=== PATIENT | male | born 1940 | race Hispanic/Latino ===

== ENCOUNTER 2020-01-05 21:58 | Observation (INO) | payer MEDICARE ==
--- NOTE | 2020-01-05 22:41 | Emergency Department Report ---
ED Chest Pain HPI - General Chief Complaint: Chest Pain Stated Complaint: CHEST PAIN Time Seen by Provider: 01/05/20 22:19 Source: patient, EMS, old records reviewed Mode of arrival: Stretcher Limitations: No Limitations - History of Present Illness Initial Comments: 79-year male with a past medical history of 1 pack/day smoking, hypertension, PAD with history of aortic femoral bypass surgery (performed here 08/2015), and as per medical record from discharge summary 2016 alcohol abuse and COPD presents to the hospital with complaints of left-sided chest pain since 11 AM. There is a constant thumping pain with intermittent shooting pains radiating to the right chest. Patient denies nausea, vomiting, shortness breath, or diaphoresis. Pain was a 9 /10 but decreased to a 7/10 nitroglycerin aspirin 324 provided by EMS prior to arrival. Patient has been compliant with his baby aspirin daily, hypertensive medication and antilipid meds. He denies history of CAD, cardiac stent, or previous cardiac cath. Patient states he no longer drinks daily and has not had alcohol in over 3 years As per med record review Negative Nuclear med Stress test echo: normal EF 55-60% Severity scale (0 -10): 5 - Related Data Home Medications Medication Instructions Recorded Confirmed Last Taken atenoloL [Tenormin] 50 mg PO DAILY 08/14/15 01/05/20 09/15/15 23:55 50 mg lisinopriL [Lisinopril] 40 mg PO DAILY 08/14/15 01/05/20 09/15/15 23:55 40 mg Aspirin [Aspirin BABY CHEW TAB] 81 mg PO QDAY 01/05/20 01/05/20 01/05/20 AtorvaSTATin [Lipitor] 20 mg PO QHS 01/05/20 01/05/20 Unknown Allergies Allergy/AdvReac Type Severity Reaction Status Date / Time No Known Allergies Allergy Verified 08/14/15 07:22 Heart Score - HEART Score History: Moderately suspicious EKG: Non-specific Age: > 65 Risk factors: > 3 risk factors or hx of atherosclerotic disease Troponin: < normal limit HEART Score: 6 ED Review of Systems ROS: Stated complaint: CHEST PAIN Other details as noted in HPI Comment: All other systems reviewed and negative ED Past Medical Hx - Past Medical History Hx Hypertension: Yes Hx Asthma: Yes Hx COPD: Yes Hx HIV: No Additional medical history: PAD - Surgical History Additional Surgical History: Aortofemoral bypass graft 2016 for PAD - Social History Smoking Status: Current Every Day Smoker Substance Use Type: None - Medications Home Medications: Home Medications Medication Instructions Recorded Confirmed Last Taken Type atenoloL [Tenormin] 50 mg PO DAILY 08/14/15 01/05/20 09/15/15 23:55 History 50 mg lisinopriL [Lisinopril] 40 mg PO DAILY 08/14/15 01/05/20 09/15/15 23:55 History 40 mg Aspirin [Aspirin BABY CHEW TAB] 81 mg PO QDAY 01/05/20 01/05/20 01/05/20 History AtorvaSTATin [Lipitor] 20 mg PO QHS 01/05/20 01/05/20 Unknown History ED Physical Exam - General Limitations: No Limitations - Other Other exam information: General: No acute distress Head: Atraumatic Eyes: normal appearance ENT: Moist mucous membranes Neck: Normal appearance, no midline tenderness Chest: Clear to auscultation bilaterally CV: Regular rate and rhythm Abdomen: Soft, normal bowel sounds, nontender, nondistended, no rebound or guarding Back: Normal inspection Extremity: Normal inspection, full range of motion, no calf tenderness or leg edema Neuro: Alert O x 3, no facial asymmetry, speech clear, no gross motor sensory deficit Psych: Appropriate behavior Skin: No rash ED Course Vital Signs 01/05/20 01/05/20 01/05/20 20:30 20:45 21:00 Pulse Rate Respiratory Rate Blood Pressure 119/66 107/59 114/61 Blood Pressure [Right] O2 Sat by Pulse Oximetry 01/05/20 01/05/20 01/05/20 21:15 22:27 22:55 Pulse Rate 66 70 Respiratory 18 15 Rate Blood Pressure 120/60 120/60 Blood Pressure 118/60 [Right] O2 Sat by Pulse 98 Oximetry MICHAELLE score - Michaelle Score Age > 65: (1) Yes Aspirin use within the Past 7 Days: (1) Yes 3 or more CAD Risk Factors: (1) Yes 2 or more Angina events in past 24 hrs: (1) Yes Known CAD with more than 50% Stenosis: (0) No Elevated Cardiac Markers: (0) No ST Deviation Greater than 0.5mm: (0) No MICHAELLE Score: 4 ED Medical Decision Making - Lab Data Result diagrams: 01/05/20 22:53 01/05/20 22:53 - EKG Data -: EKG Interpreted by Me (Right bundle branch block, left anterior fascicular) EKG shows normal: sinus rhythm Rate: normal (60) - EKG Data When compared to previous EKG there are: changes noted (Compared to EKG on record from September 2015) - Radiology Data Radiology results: report reviewed CHEST 1 VIEW 01/05/2020 9:45 PM INDICATION / CLINICAL INFORMATION: Chest Pain. COMPARISON: None available. FINDINGS: SUPPORT DEVICES: None. HEART / MEDIASTINUM: No significant abnormality. LUNGS / PLEURA: No significant pulmonary or pleural abnormality. No pneumothorax. ADDITIONAL FINDINGS: No significant additional findings. IMPRESSION: 1. No acute findings. - Medical Decision Making Patient presents to the hospital left-sided chest pain. Personal history is significant PAD requiring aortofemoral bypass and continues to smoke cigarettes. Labs cardiac evaluation here was in 2015 and patient had a normal stress test at that time. 1/2 inch nitroglycerin paste placed to chest wall in the ED however, this will be discontinued if systolic pressure drops below 100 Patient has a history of alcohol abuse, labs revealed thrombocytopenia as well as hyponatremia and hypochloremia. Normal saline at 250 an hour ordered Initial EKG without acute ischemic findings but show a right bundle branch block which is new compared to previous EKG on record. Initial troponin negative and chest pain has been ongoing since 11 AM. Patient will be admitted to the hospitalist service with consultation of cardiology. [facility] consultation requested given that patient was evaluated and managed by [facility] in the past Pt received asa and ntg prior to ed arrival Critical Care Time: No Critical care attestation.: If time is entered above; I have spent that time in minutes in the direct care of this critically ill patient, excluding procedure time. ED Disposition Clinical Impression: Chest pain, S/P aortobifemoral bypass surgery, PAD (peripheral artery disease), Tobacco abuse Disposition: OP ADMIT IP TO THIS HOSP Is pt being admited?: Yes Condition: Stable Time of Disposition: 00:30 (Dr Ortiz/hosp)
--- NOTE | 2020-01-05 22:50 | XRay Report ---
CHEST 1 VIEW 01/05/2020 9:45 PM INDICATION / CLINICAL INFORMATION: Chest Pain. COMPARISON: None available. FINDINGS: SUPPORT DEVICES: None. HEART / MEDIASTINUM: No significant abnormality. LUNGS / PLEURA: No significant pulmonary or pleural abnormality. No pneumothorax. ADDITIONAL FINDINGS: No significant additional findings. IMPRESSION: 1. No acute findings. Signer Name: Jose Martins MD Signed: 01/05/2020 10:46 PM Workstation Name: [id number]
[2020-01-05] MEDS: NITROGLYCERIN 2% OINT 1 GM TP ONE (23:00)
[2020-01-05 23:39] LABS: Basophils % (Auto) 0.4 % (0.0-1.8); Eosinophils % (Auto) 0.9 % (0.0-4.3); Hemoglobin 13.5 gm/dl (11.8-15.2); Lymphocytes # (Auto) 1.5 K/mm3 (1.2-5.4); Lymphocytes % (Auto) 27.4 % (13.4-35.0); Mean Corpuscular HGB Conc 36 % (32-34); Mean Corpuscular Volume 93 fl (84-94); Monocytes # (Auto) 0.4 K/mm3 (0.0-0.8); Monocytes % (Auto) 7.8 % (0.0-7.3); Red Blood Count 4.11 M/mm3 (3.65-5.03); Red Cell Distribution Width 14.8 % (13.2-15.2)
[2020-01-05 23:46] LABS: INR 1.31 (0.87-1.13)
[2020-01-05 23:47] LABS: Partial Thromboplastin Time 29.2 Sec. (24.2-36.6)
[2020-01-05 23:50] LABS: Blood Urea Nitrogen 14 mg/dL (9-20); Calcium 10.1 mg/dL (8.4-10.2); Hemolysis Index 7
[2020-01-05 23:52] LABS: Platelet Count 87 K/mm3 (140-440)
[2020-01-05 23:54] LABS: BUN/Creatinine Ratio 23
[2020-01-06] MEDS ORDERED: SODIUM CHLORIDE 0.9% 1000 ML 1,000 ML IV ONE (00:22)
[2020-01-06] MEDS: NITROGLYCERIN 2% OINT 1 GM TP ONE (00:33)
[2020-01-06] MEDS ORDERED: MORPHINE 4 MG/1 ML INJ IV ONE (01:52)
[2020-01-06] MEDS ORDERED: ONDANSETRON 4 MG/2 ML INJ IV ONE (01:55)
[2020-01-06] MEDS ORDERED: MORPHINE 4 MG/1 ML INJ ONE (02:13)
[2020-01-06] MEDS ORDERED: NITROGLYCERIN 0.4 MG TAB SUBL SL PRN (02:17)
[2020-01-06] MEDS ORDERED: ONDANSETRON 4 MG/2 ML INJ IV PRN (02:17)
[2020-01-06] MEDS ORDERED: ACETAMINOPHEN 325 MG TAB PO PRN ×2 (02:17)
[2020-01-06] MEDS ORDERED: MAGNESIUM HYDROXIDE (MOM) ORAL LIQD UDC PO PRN (02:17)
[2020-01-06] MEDS ORDERED: MORPHINE 4 MG/1 ML INJ IV PRN (02:17)
[2020-01-06] MEDS ORDERED: ONDANSETRON 4 MG/2 ML INJ ONE (02:18)
--- NOTE | 2020-01-06 02:28 | History and Physical Report ---
History of Present Illness Date of examination: 01/06/20 Date of admission: 01/06/20 00:31 Chief complaint: Chest pain History of present illness: 79-year-old male with known history of COPD, hypertension, peripheral arterial disease status post aortofemoral bypass surgery in 2016 presents to the emergency room today with complaints of left-sided chest pain which started earlier today. Pain is said to be intermittent, thumping in nature and radiating towards the Right side of his chest. Patient denies any nausea vomiting, no shortness of breath and no diaphoresis. No headache or dizziness. On a scale of 10 pain was about 9/10 in severity. Patient was given some sublingual nitroglycerin and aspirin by EMS with improvement in his chest pain. Patient indicates she has been compliant with his medications. He has had a stress test about 4 years ago which was negative. Past History Past Medical History: COPD, hypertension, hyperlipidemia, other (PAD,Asthma) Past Surgical History: Other (Aortofemoral Bypass) Social history: smoking (Current daily smoker) Family history: no significant family history Medications and Allergies Allergies Allergy/AdvReac Type Severity Reaction Status Date / Time No Known Allergies Allergy Verified 08/14/15 07:22 Home Medications Medication Instructions Recorded Confirmed Last Taken Type atenoloL [Tenormin] 50 mg PO DAILY 08/14/15 01/05/20 09/15/15 23:55 History 50 mg lisinopriL [Lisinopril] 40 mg PO DAILY 08/14/15 01/05/20 09/15/15 23:55 History 40 mg Aspirin [Aspirin BABY CHEW TAB] 81 mg PO QDAY 01/05/20 01/05/20 01/05/20 History AtorvaSTATin [Lipitor] 20 mg PO QHS 01/05/20 01/05/20 Unknown History Active Meds: Active Medications Sodium Chloride (Nacl 0.9% 1000 Ml) 1,000 mls @ 250 mls/hr IV ONCE ONE Stop: 01/06/20 04:21 Last Admin: 01/06/20 00:33 Dose: 250 mls/hr Documented by: Review of Systems Constitutional: no fever, no chills Ears, nose, mouth and throat: no nasal congestion, no sore throat Cardiovascular: chest pain, no palpitations Respiratory: no cough, no shortness of breath Gastrointestinal: no abdominal pain, no nausea, no vomiting, no diarrhea Genitourinary Male: no dysuria, no hematuria, no flank pain Musculoskeletal: no neck pain, no low back pain Integumentary: no rash, no pruritis Neurological: no headaches, no confusion Psychiatric: no anxiety, no depression Exam - Constitutional Vitals: Temp Pulse Resp BP Pulse Ox 70 18 120/60 98 01/05/20 22:55 01/06/20 02:15 01/05/20 22:55 01/05/20 22:27 General appearance: Present: no acute distress, well-nourished - EENT Eyes: Present: PERRL, EOM intact. Absent: scleral icterus ENT: hearing intact, clear oral mucosa, dentition normal - Neck Neck: Present: supple, normal ROM - Respiratory Respiratory effort: normal Respiratory: bilateral: CTA - Cardiovascular Rhythm: regular Heart Sounds: Present: S1 & S2. Absent: gallop, systolic murmur, diastolic murmur, rub - Extremities Extremities: no ischemia, pulses intact, pulses symmetrical, No edema, Full ROM Peripheral Pulses: within normal limits - Abdominal General gastrointestinal: Present: soft, non-tender, non-distended. Absent: mass - Integumentary Integumentary: Present: clear, warm, dry. Absent: rash - Musculoskeletal Musculoskeletal: strength equal bilaterally - Psychiatric Psychiatric: appropriate mood/affect, intact judgment & insight, memory intact, cooperative - Neurologic Neurologic: CNII-XII intact, no focal deficits, moves all extremities HEART Score - HEART Score History: Slightly suspicious EKG: Non-specific Age: > 65 Risk factors: > 3 risk factors or hx of atherosclerotic disease Troponin: Troponin T < 0.010 ng/mL (0.00-0.029) 01/05/20 22:53 Troponin: < normal limit HEART Score: 5 Results - Labs CBC & Chem 7: 01/05/20 22:53 01/05/20 22:53 Labs: Abnormal lab results 01/05/20 01/05/20 01/05/20 Range/Units 22:53 22:53 22:53 MCH 33 H (28-32) pg MCHC 36 H (32-34) % Plt Count 87 L (140-440) K/mm3 [place] % (Auto) 7.8 H (0.0-7.3) % PT 16.5 H (12.2-14.9) Sec. INR 1.31 H (0.87-1.13) Sodium 129 L (137-145) mmol/L Chloride 90.5 L (98-107) mmol/L Creatinine 0.6 L (0.8-1.3) mg/dL Glucose 102 H (75-100) mg/dL Assessment and Plan - Patient Problems (1) Chest pain Current Visit: Yes Status: Acute Plan to address problem: Patient admitted and placed on telemetry. Will check serial cardiac enzymes. Patient placed on daily aspirin, sublingual nitroglycerin and IV morphine as needed for chest pain. We will await evaluation by cardiology. (2) Peripheral arterial disease Current Visit: Yes Status: Chronic Plan to address problem: Patient has had aortofemoral bypass in the past. (3) Tobacco abuse Current Visit: Yes Status: Chronic Plan to address problem: Patient counseled on quitting tobacco abuse. (4) HTN (hypertension) Current Visit: No Status: Chronic Qualifiers: Hypertension type: essential hypertension Qualified Code(s): I10 - Essential (primary) hypertension Plan to address problem: We will resume routine home medications once reconciled. Will monitor vital signs closely. (5) DVT prophylaxis Current Visit: Yes Status: Acute Plan to address problem: Patient placed on subcutaneous Lovenox. (6) Full code status Current Visit: No Status: Acute
[2020-01-06 07:47] LABS: Basophils % (Auto) 0.2 % (0.0-1.8); Eosinophils % (Auto) 0.9 % (0.0-4.3); Hematocrit 38.6 % (35.5-45.6); Hemoglobin 13.7 gm/dl (11.8-15.2); Lymphocytes # (Auto) 1.8 K/mm3 (1.2-5.4); Lymphocytes % (Auto) 34.4 % (13.4-35.0); Mean Corpuscular HGB Conc 36 % (32-34); Mean Corpuscular Volume 93 fl (84-94); Monocytes # (Auto) 0.5 K/mm3 (0.0-0.8); Monocytes % (Auto) 10.2 % (0.0-7.3); Red Blood Count 4.16 M/mm3 (3.65-5.03); Red Cell Distribution Width 14.9 % (13.2-15.2)
[2020-01-06 07:53] LABS: Platelet Count 84 K/mm3 (140-440)
[2020-01-06 08:10] LABS: Blood Urea Nitrogen 14 mg/dL (9-20); Calcium 9.9 mg/dL (8.4-10.2); Hemolysis Index 5
[2020-01-06] MEDS ORDERED: REGADENOSON 0.4 MG/5 ML INJ IV ONE ×2 (08:23→09:53)
[2020-01-06 08:27] LABS: BUN/Creatinine Ratio 23
--- NOTE | 2020-01-06 10:11 | Consultation ---
History of Present Illness Consult date: 01/06/20 Requesting physician: FADUMO DAVID Consult reason: chest pain History of present illness: The pt is a 79-year male with a past medical history of 1 pack/day smoking, COPD, HTN, PAD with history of aortic femoral bypass surgery (performed here 08/2015), former ETOH abuse. He has been seen in our office by Dr. Jesus Manuel Rg (last seen 10/2018). He presented with c/o left-sided chest pain since 11 AM yesterday. There is a constant thumping pain with intermittent shooting pains radiating to the right chest. The pain is reproducible with deep inspiration. Patient denies any SOB above baseline, palpitations, n/v, diaphoresis, dizziness or syncope. Patient states he no longer drinks daily and has not had alcohol in over 3 y ears. Lexiscan MPI stress test done 08/2015 showed small area of apical ischemia, no significant ischemia, normal EF. tte done 08/2015 showed EF 55-60%, mild LVH. Past History Past Medical History: COPD, hypertension, other (PAD,Asthma) Past Surgical History: Other (Aortofemoral Bypass) Social history: smoking (Current daily smoker) Family history: no significant family history Medications and Allergies Allergies Allergy/AdvReac Type Severity Reaction Status Date / Time No Known Allergies Allergy Verified 08/14/15 07:22 Home Medications Medication Instructions Recorded Confirmed Last Taken Type atenoloL [Tenormin] 50 mg PO DAILY 08/14/15 01/05/20 09/15/15 23:55 History 50 mg lisinopriL [Lisinopril] 40 mg PO DAILY 08/14/15 01/05/20 09/15/15 23:55 History 40 mg Aspirin [Aspirin BABY CHEW TAB] 81 mg PO QDAY 01/05/20 01/05/20 01/05/20 History AtorvaSTATin [Lipitor] 20 mg PO QHS 01/05/20 01/05/20 Unknown History Active Meds: Active Medications Acetaminophen (Tylenol) 650 mg PO Q4H PRN PRN Reason: Pain MILD(1-3)/Fever >100.5/PETERSON Aspirin (Ecotrin) 325 mg PO QDAY LILO Enoxaparin Sodium (Enoxaparin) 40 mg SUB-Q QDAY@2200 LILO; Protocol Magnesium Hydroxide (Milk Of Magnesia) 30 ml PO Q4H PRN PRN Reason: Constipation Morphine Sulfate (Morphine) 2 mg IV Q5MIN PRN PRN Reason: Chest Pain Last Admin: 01/06/20 08:56 Dose: 2 mg Documented by: Nitroglycerin (Nitrostat) 0.4 mg SL Q5M PRN PRN Reason: Chest Pain Ondansetron HCl (Zofran) 4 mg IV Q8H PRN PRN Reason: Nausea And Vomiting Sodium Chloride (Sodium Chloride Flush Syringe 10 Ml) 10 ml IV BID LILO Last Admin: 01/06/20 09:53 Dose: Not Given Documented by: Sodium Chloride (Sodium Chloride Flush Syringe 10 Ml) 10 ml IV PRN PRN PRN Reason: LINE FLUSH Review of Systems Constitutional: no weight loss, no weight gain, no fever, no chills, no sweats Ears, nose, mouth and throat: no ear pain, no nose pain, no sinus pressure, no sinus pain Cardiovascular: chest pain, shortness of breath (chronic), dyspnea on exertion (chronic), no orthopnea, no palpitations, no rapid/irregular heart beat, no edema, no syncope, no lightheadedness Respiratory: shortness of breath (chronic), dyspnea on exertion (chronic), pain on inspiration, no congestion, no wheezing Gastrointestinal: no abdominal pain, no nausea, no vomiting, no diarrhea, no constipation, no change in bowel habits Genitourinary Male: no dysuria, no hematuria, no flank pain, no discharge, no urinary frequency, no urinary hesitancy Musculoskeletal: no neck stiffness, no neck pain, no shooting arm pain, no arm numbness/tingling, no low back pain, no shooting leg pain Integumentary: no rash, no pruritis, no redness, no sores, no wounds Neurological: no head injury, no paralysis, no weakness, no parathesias, no numbness, no tingling, no seizures, no syncope Psychiatric: no anxiety Endocrine: no cold intolerance, no heat intolerance Hematologic/Lymphatic: no easy bruising, no easy bleeding Allergic/Immunologic: no urticaria Physical Examination Vital Signs BP 119/66 01/05/20 20:30 General appearance: no acute distress HEENT: Positive: PERRL, Normocephaly, Mucus Membranes Moist Neck: Positive: neck supple, trachea midline Cardiac: Positive: Reg Rate and Rhythm, S1/S2 Lungs: Positive: Decreased Breath Sounds Neuro: Positive: Grossly Intact Abdomen: Negative: Tender Skin: Negative: Rash Musculoskeletal: No Pain Extremities: Absent: edema Results 01/06/20 06:41 01/06/20 06:41 Coagulation 01/05/20 Range/Units 22:53 PT 16.5 H (12.2-14.9) Sec. INR 1.31 H (0.87-1.13) APTT 29.2 (24.2-36.6) Sec. CBC 01/05/20 01/06/20 Range/Units 22:53 06:41 WBC 5.6 5.1 (4.5-11.0) K/mm3 RBC 4.11 4.16 (3.65-5.03) M/mm3 Hgb 13.5 13.7 (11.8-15.2) gm/dl Hct 38.0 38.6 (35.5-45.6) % Plt Count 87 L 84 L (140-440) K/mm3 Lymph # (Auto) 1.5 1.8 (1.2-5.4) K/mm3 Bee # (Auto) 0.4 0.5 (0.0-0.8) K/mm3 Eos # (Auto) 0.0 0.0 (0.0-0.4) K/mm3 Baso # (Auto) 0.0 0.0 (0.0-0.1) K/mm3 Comprehensive Metabolic Panel 01/05/20 01/06/20 Range/Units 22:53 06:41 Sodium 129 L 133 L (137-145) mmol/L Potassium 4.1 4.0 (3.6-5.0) mmol/L Chloride 90.5 L 94.3 L (98-107) mmol/L Carbon Dioxide 23 31 H D (22-30) mmol/L BUN 14 14 (9-20) mg/dL Creatinine 0.6 L 0.6 L (0.8-1.3) mg/dL Glucose 102 H 78 (75-100) mg/dL Calcium 10.1 9.9 (8.4-10.2) mg/dL - Imaging and Cardiology Echo: report reviewed (08/2015 showed EF 55-60%, mild LVH. ) EKG: report reviewed, image reviewed EKG interpretations - Telemetry EKG Rhythm: Sinus Rhythm - EKG Sinus rhythms and dysrhythmias: sinus rhythm AV and intraventricular conduction: right bundle branch block Assessment and Plan Chest pain appears atypical, reproducible. AMI r/o. S/p lexiscan MPI stress test today which was negative. Smoking cessation encouraged. Currently stable cardiac status. Pt may discharge from cardiology standpoint. Recommend pt follow up in our office with Dr. Jesus Manuel Rg within 2 weeks ([phone]). The patient has been seen in conjunction with Dr. Daly who agrees with the assessment and plan of care. - Patient Problems (1) Chest pain Current Visit: Yes Status: Acute (2) COPD (chronic obstructive pulmonary disease) Current Visit: Yes Status: Chronic Qualifiers: COPD type: COPD with acute exacerbation Qualified Code(s): J44.1 - Chronic obstructive pulmonary disease with (acute) exacerbation (3) HTN (hypertension) Current Visit: Yes Status: Chronic Qualifiers: Hypertension type: essential hypertension Qualified Code(s): I10 - Essent ial (primary) hypertension (4) RBBB Current Visit: Yes Status: Chronic Plan to address problem: also present on last ECG in our office - 10/2018 (5) Peripheral arterial disease Current Visit: Yes Status: Chronic (6) S/P aortobifemoral bypass surgery Current Visit: Yes Status: Chronic (7) Tobacco abuse Current Visit: Yes Status: Chronic
[2020-01-06 11:59] VITALS: BP 158/63
--- NOTE | 2020-01-06 12:05 | Discharge Summary ---
Providers - Providers Date of Admission: 01/06/20 00:31 Date of discharge: 01/06/20 Attending physician: EDWARDO MELLO 01/06/20 Consult to Cardiac Rehabilitation [CONS] Routine Reason For Exam: Phase I 01/06/20 00:30 Consult to Physician [CONS] Urgent Comment: Consulting Provider: CRISTIANE MARITNEZ Physician Instructions: Reason For Exam: chest pain, hx of PAD Primary care physician: GREGORIO VELA Hospitalization Condition: Stable Pertinent studies: NM Lexiscan stress test Echocardiogram Hospital course: History of present illness: The pt is a 79-year male with a past medical history of 1 pack/day smoking, COPD, HTN, PAD with history of aortic femoral bypass surgery (performed here 08/2015), former ETOH abuse. He has been seen in our office by Dr. Jesus Manuel Rg (last seen 10/2018). He presented with c/o left-sided chest pain since 11 AM yesterday. There is a constant thumping pain with intermittent shooting pains radiating to the right chest. The pain is reproducible with deep inspiration. Patient denies any SOB above baseline, palpitations, n/v, diaphoresis, dizziness or syncope. Patient states he no longer drinks daily and has not had alcohol in over 3 years. Lexiscan MPI stress test done 08/2015 showed small area of apical ischemia, no significant ischemia, normal EF. tte done 08/2015 showed EF 55-60%, mild LVH. 01/05 patient is moderately hard of hearing, complains of left-sided chest pain described as sharp, localized and nonexertional. He denies any sweating or palpitations or shortness of breath. Nuclear medicine stress test done this morning is normal per discussion with Dr. Daly. Serial troponin levels were normal Lab results reviewed. Patient is medically stable for discharge. Will discharge the patient on hydrocodone for as needed use as this appears noncardiac chest pain. Cardiology was consulted. Echocardiogram was done but r esults are pending. Patient normally follows up with cardiology at [facility] Disposition: DC-01 TO HOME OR SELFCARE Time spent for discharge: 36 min - Discharge Diagnoses (1) Hyponatremia Status: Acute Comment: Mild, resolved (2) Chest pain Status: Acute Comment: Atypical chest pain, FL ruled out with serial troponins, nuclear medicine Lexiscan stress test was normal. Patient has been cleared for discharge by cardiology. Chest x-ray reviewed (3) HTN (hypertension) Status: Chronic Qualifiers: Hypertension type: essential hypertension Qualified Code(s): I10 - Essential (primary) hypertension Comment: Continue home medications (4) Peripheral arterial disease Status: Chronic Comment: History of aortofemoral bypass surgery Continue home medications (5) Tobacco abuse Status: Chronic Comment: Smoking cessation counseling was done Core Measure Documentation - Palliative Care Palliative Care/ Comfort Measures: Not Applicable - Core Measures Any of the following diagnoses?: none Exam - Constitutional Vitals: Temp Pulse Resp BP Pulse Ox 98.0 F 63 18 158/63 97 01/06/20 11:54 01/06/20 11:54 01/06/20 11:54 01/06/20 11:54 01/06/20 11:54 General appearance: Present: no acute distress, well-nourished - EENT Eyes: Present: PERRL, EOM intact ENT: hearing intact, clear oral mucosa - Neck Neck: Present: supple, normal ROM - Respiratory Respiratory effort: normal Respiratory: bilateral: CTA, diminished, negative: rales, rhonchi - Cardiovascular Rhythm: regular Heart Sounds: Present: S1 & S2 - Extremities Extremities: No edema - Abdominal General gastrointestinal: Present: soft, non-tender ([place]). Absent: hepatomegaly, splenomegaly Male genitourinary: Present: deferred - Rectal Rectal Exam: deferred - Integumentary Integumentary: Present: clear - Musculoskeletal Musculoskeletal: strength equal bilaterally - Psychiatric Psychiatric: appropriate mood/affect - Neurologic Neurologic: CNII-XII intact, no focal deficits Plan Activity: no restrictions, advance as tolerated Weight Bearing Status: Full Weight Bearing Diet: regular, low fat, low cholesterol, low salt Follow up with: GREGORIO VELA MD [Primary Care Provider] - 3-5 Days Prescriptions: HYDROcodone/APAP 5-325 [[place] 5/325] 1 each PO Q6HR PRN #14 tablet PRN Reason: Pain
--- NOTE | 2020-01-06 12:29 | Treadmill Report ---
CARDIAC NUCLEAR PERFUSION STUDY REASON FOR STUDY: Chest pain. IMAGING PROTOCOL: The patient received 10 mCi of Technetium 99m Tetrofosmin for resting image and 28 mCi of Technetium 99m Tetrofosmin for stress imaging. The imaging for the whole procedure was completed 30-90 minutes following the initial injection of Technetium 99m Tetrofosmin. The SPECT imaging in the 180 degree arc was performed in the right anterior oblique projection. Computerized reconstruction of the images was performed for analysis. IMAGING RESULTS: Normal cavity size from stress to rest. Normal distribution of radionuclide in the anterior, inferior, septal, and apical regions. Gated SPECT, EF 65% with no wall motion abnormality. The patient infused Lexiscan with no EKG changes. SUMMARY: 1. Negative Lexiscan EKG. 2. Normal rest and stress myocardial perfusion scan. No significant stress ischemia. No wall motion abnormality. Gated SPECT, EF 65%. JOB# [id number] ELMER/BENSON
[2020-01-06] MEDS ORDERED: ENOXAPARIN 40 MG/0.4 ML INJ SUB-Q SCH (22:00)
[2020-01-07] MEDS ORDERED: ASPIRIN EC 325 MG TAB PO SCH (10:00)
== END 2020-01-06 14:49 | disposition home or self-care (01) ==
LOC: ED 21:58 → 4A 01-06 00:31
PROVIDERS: ADMIT Internal Medicine Geriatric Medicine; ATTEND Internal Medicine
DX: R07.89 Other chest pain (principal); I73.9 Peripheral vascular disease, unspecified; I10 Essential (primary) hypertension; I45.10 Unspecified right bundle-branch block; J44.1 Chronic obstructive pulmonary disease with (acute) exacerbation; F17.200 Nicotine dependence, unspecified, uncomplicated; E78.5 Hyperlipidemia, unspecified; Z98.890 Other specified postprocedural states; Z79.82 Long term (current) use of aspirin
CPT/HCPCS: 36415; 71045; 78452; 80048; 84484; 85025; 85610; 85730; 93005; 93017; 93306; 96361; 96374; 96375; 96376; 99285; A9502; G0378; J2270; J2405; J2785; J7030